=== PATIENT | male | born 1995 | race African-American/Black ===

== ENCOUNTER 2018-06-04 19:48 | Emergency (ER) | payer OTHER ==
[2018-06-04] MEDS: NORCO 5/325MG TABLET (BULK FOR ED) PO (21:10)
[2018-06-04] MEDS: PERCOCET 5MG/325MG TAB PO (21:10)
== END 2018-06-04 21:27 | disposition home or self-care (01) ==
LOC: M ED 19:48
DX: S83.412A Sprain of medial collateral ligament of left knee, initial encounter (principal); S83.512A Sprain of anterior cruciate ligament of left knee, initial encounter; W00.9XXA Unspecified fall due to ice and snow, initial encounter; Y92.133 Barracks on military base as the place of occurrence of the external cause; Y93.9 Activity, unspecified; Y99.1 Military activity
CPT/HCPCS: 73564

== ENCOUNTER 2021-08-29 05:59 | Day surgery (SDC) | payer OTHER ==
[~2021-08-29] VITALS: Ht 190.5 cm; Wt 108.4 kg
[~2021-08-29 05:59] MED LIST: IBUP-1114 PO; OXYC1TAB23 PO
[2021-08-29] MEDS ORDERED: ceFAZolin SOD 2 GM in IV 1 EA IV ONE (06:00)
[2021-08-29] MEDS ORDERED: LIDOCAINE 1% MDV 20ML VIAL SQ PRN (06:00)
[2021-08-29] MEDS ORDERED: LR 1,000 ML IV ONE (06:00)
[2021-08-29] MEDS ORDERED: oxyCODONE 5MG TAB PO ONE (06:00)
[2021-08-29] MEDS ORDERED: MIDAZOLAM INJ 2MG/2ML VIAL (J2250 PER 1MG) As Ordered ONE (06:57)
[2021-08-29] MEDS ORDERED: fentaNYL 250 MCG/5 ML INJECTION As Ordered ONE (06:58)
[2021-08-29] MEDS ORDERED: fentaNYL 100 MCG/2 ML INJECTION IV PRN (07:01)
[2021-08-29] MEDS ORDERED: LIDOCAINE 2% 100MG/5ML SDV (FOR ANES.) As Ordered ONE (07:03)
[2021-08-29] MEDS ORDERED: propofoL 200 MG/20 ML VIAL As Ordered ONE (07:03)
[2021-08-29] MEDS ORDERED: ONDANSETRON 4MG/2ML VIAL As Ordered ONE ×2 (07:03→12:19)
[2021-08-29] MEDS ORDERED: SUGAMMADEX SODIUM 500 MG/5 ML VIAL (BRIDION) As Ordered ONE (07:03)
[2021-08-29] MEDS ORDERED: dexameTHASONE 4 MG/ML 1ML VIAL (J1100 PER 1MG) As Ordered ONE (07:03)
[2021-08-29] MEDS ORDERED: ROCURONIUM BROMIDE 50 MG/5 ML VIAL As Ordered ONE (07:03)
[2021-08-29] MEDS ORDERED: ACETAMINOPHEN 1000MG 100ML IV BTL (OFIRMEV) (J0131 PER 10MG) As Ordered ONE (07:06)
[2021-08-29] MEDS ORDERED: LIDOCAINE 1% MDV 20ML VIAL XX ONE (07:30)
[2021-08-29] MEDS ORDERED: ROPIvacaine 0.5% 30ML INJECTION (J2795 PER 1MG) XX ONE (07:30)
[2021-08-29] MEDS ORDERED: EPINEPHrine INJ 1 MG/ML 1ML AMP XX ONE (07:30)
[2021-08-29] MEDS ORDERED: dexameTHASONE 10MG/1ML VIAL PRES.FREE (J1100 PER 1MG) XX ONE (07:30)
[2021-08-29] MEDS ORDERED: LIDOCAINE W/EPINEPHRINE 1% 20ML VIAL As Ordered ONE (07:41)
[2021-08-29] MEDS ORDERED: EPINEPHrine INJ 1 MG/ML 1ML AMP As Ordered ONE (07:41)
[2021-08-29] MEDS ORDERED: fentaNYL 100 MCG/2 ML INJECTION As Ordered ONE (07:43)
[2021-08-29] MEDS ORDERED: BUPIVACAINE HCL 0.5% 30 ML VIAL As Ordered ONE (07:50)
[2021-08-29] MEDS ORDERED: TRANEXAMIC ACID 100 MG/ML 10ML VIAL As Ordered ONE (08:29)
[2021-08-29] MEDS ORDERED: ePHEDrine SULFATE 25 MG/5 ML(5MG/ML) SYRINGE As Ordered ONE (08:48)
[2021-08-29] MEDS ORDERED: OXYC1TAB23 PO (11:39)
[2021-08-29] MEDS ORDERED: LR 1,000 ML IV SCH (12:30)
[2021-08-29] MEDS ORDERED: MORPHINE 4 MG/ML 1ML VIAL/SYRINGE (J2270) IV PRN (12:30)
[2021-08-29] MEDS ORDERED: ONDANSETRON 4MG/2ML VIAL IV PRN (12:30)
[2021-08-29] MEDS ORDERED: METOCLOPRAMIDE INJ 10MG/2ML VIAL (J2765 PER 1) IV PRN (12:30)
[2021-08-29] MEDS: fentaNYL 100 MCG/2 ML INJECTION IV PRN ×4 (12:38→12:56)
[2021-08-29] MEDS: oxyCODONE 5MG TAB PO PRN ×2 (12:38→13:06)
[2021-08-29 14:10] VITALS: BP 145/73
== END 2021-08-29 14:12 | disposition home or self-care (01) ==
LOC: M SDC 05:59
PROVIDERS: ATTEND Orthopaedic Surgery
DX: S83.512A Sprain of anterior cruciate ligament of left knee, initial encounter (principal); Y92.139 Unspecified place military base as the place of occurrence of the external cause; Y99.1 Military activity; Y93.A2 Activity, calisthenics
CPT/HCPCS: 29888; 64447; 73560; C1713; J0131; J0171; J0690; J1100; J2250; J2270; J2405; J2765; J3010

== ENCOUNTER → 2021-09-12 | Outpatient (CLI) | payer OTHER | LOC: M SOG 08:25 | PROVIDERS: ATTEND Orthopaedic Surgery | DX: S83.512A Sprain of anterior cruciate ligament of left knee, initial encounter (principal); W18.30XA Fall on same level, unspecified, initial encounter; Y92.009 Unspecified place in unspecified non-institutional (private) residence as the place of occurrence of the external cause ==

== ENCOUNTER 2022-09-15 11:51 | Emergency (ER) | payer OTHER ==
[~2022-09-15] VITALS: Ht 190.5 cm; Wt 109.1 kg
[2022-09-15] MEDS ORDERED: CELE1CAP9 (12:07)
[2022-09-15] MEDS ORDERED: GABA-282 (12:07)
[2022-09-15 13:21] LABS: BASO % 0.5 % (0.0-1.0); EOS # 0.2 10^3/uL (0.0-0.5); EOS % 3.5 % (0.0-3.0); HEMATOCRIT 46.6 % (42.0-52.0); LYMPH # 2.3 10^3/uL (1.5-5.0); LYMPH % 38.1 % (24.0-44.0); MEAN CORPUSCULAR HEMOGLOBIN 30.3 pg (27.0-33.0); MEAN CORPUSCULAR HGB CONC 34.3 g/dl (32.0-36.5); MEAN CORPUSCULAR VOLUME 88.3 fl (80.0-96.0); MONO # 0.5 10^3/uL (0.0-0.8); MONO % 8.7 % (2.0-8.0); NEUTROPHILS # 2.9 10^3/uL (1.5-8.5); NEUTROPHILS % 48.4 % (36.0-66.0); PLATELET COUNT, AUTOMATED 272 10^3/uL (150-450); RED BLOOD COUNT 5.28 10^6/uL (4.30-6.10); WHITE BLOOD COUNT 6.1 10^3/uL (4.0-10.0)
[2022-09-15 13:38] LABS: INR 0.9; PARTIAL THROMBOPLASTIN TIME 27.1 SECONDS (24.8-34.2); PROTHROMBIN TIME 12.3 SECONDS (12.5-14.5)
[2022-09-15 13:46] LABS: BLOOD UREA NITROGEN 14 MG/DL (9-23); CALCIUM LEVEL 9.3 MG/DL (8.5-10.1); CARBON DIOXIDE LEVEL 29 MMOL/L (20-31); CHLORIDE LEVEL 105 MMOL/L (98-107); CK-MB VALUE MASS < 1.0 NG/ML (<3.6); CPK CREATINE PHOSPHOKINASE 386 U/L (46-171); CREATININE FOR GFR 1.25 MG/DL (0.70-1.30); GLOMERULAR FILTRATION RATE > 60.0 (>60); GLUCOSE, FASTING 83 MG/DL (60-100); MB/CK RELATIVE INDEX 0.25 (< OR =4); POTASSIUM SERUM 5.5 MMOL/L (3.5-5.1); SODIUM LEVEL 140 MMOL/L (136-145)
[2022-09-15 14:08] LABS: RSV AMPLIFICATION NEGATIVE (NEGATIVE)
[2022-09-15] MEDS ORDERED: NS 1,000 ML IV ONE (14:55)
[2022-09-15] MEDS ORDERED: ISOVUE-370 76% 100ML VIAL As Ordered ONE (14:56)
[2022-09-15] MEDS ORDERED: VENTAER INH (16:13)
[2022-09-15 17:57] VITALS: BP 130/71
== END 2022-09-15 18:00 | disposition home or self-care (01) ==
LOC: M ED 11:51
DX: I51.7 Cardiomegaly (principal); R06.02 Shortness of breath
CPT/HCPCS: 71275; 80048; 82550; 82553; 83880; 84132; 84484; 85025; 85610; 85730; 87631; 93005; 96360; 96361; 99284; Q9967